=== PATIENT | male | born 1955 | race Hispanic/Latino ===

== ENCOUNTER 2021-11-01 10:47 | Emergency (ER) | payer OTHER ==
--- OUTSIDE RECORDS SUMMARY | 2021-11-01 10:51 | XMS REPORT | Continuity of Care Document ---
:1955 Author Organization [facility] t Address [address] [place] [address] Care Team Providers Name Role Phone Sharpless Primary Care Physician Nora Santillan Attending Clinician Unavailable ROSE YUSUF Attending Clinician Unavailable LYNNETTE GOINS Attending Clinician Unavailable JASON TORRES Attending Clinician Unavailable MD JASON TORRES Attending Clinician Unavailable Danelle Di Bakari Attending Clinician Unavailable RONEY FRANKLIN Attending Clinician Unavailable HEIDY POLANCO Attending Clinician Unavailable JASON TORRES Admitting Clinician Unavailable MD JASON TORRES Admitting Clinician Unavailable Danelle Di V Admitting Clinician Unavailable RONEY FRANKLIN Admitting Clinician Unavailable HEIDY POLANCO Admitting Clinician Unavailable ROSE YUSUF Admitting Clinician Unavailable Payers Payer Name Policy Type Policy Number Effective Date Expiration Date S ource Problems Condition Condition Condition Status Onset Resolution Last Treating Co mments Source Name Details Category Date Date Treatment Clinician Date Sepsis Sepsis Disease Active [facility] 11[facility]: [facility]osp[facility] 00 l Leukocytos Leukocytos Disease Active M ethodi is is 11-29 00:00: [facility]ospita 00 l Abnormal Abnormal Disease Active [facility] Allergies, Adverse Reactions, Alerts Allergy Allergy Status Severity Reaction(s) Onset Inactive Treating Comm ents Source Name Type Date Date Clinician No Known DA Active U [facility] 8-25 Clear s 00:00: Antonio 00 [facility] No Known DA Active U [facility] Allergie 8-25 Clear s 00:00: Antonio 00 [facility] No Known DA Active U 2009-03 [facility] Intolera 0-03 Clear nces 00:00: Antonio [facility] No Known DA Active U 2009-03 [facility] Intolera 0-03 Clear nces 00:00: [place] [facility] Social History Social Habit Start Date Stop Date Quantity Comments Source History of Current smoker [facility] Hospital History [facility] Drinks History [facility] Alcohol intake 2020-09-24 2020-09-24 Current [facility] 00:00:00 00:00:00 non-drinker of Hospital alcohol (finding) Tobacco use and 2019-12-01 2019-12-01 Smokeless tobacco [facility] exposure 00:00:00 00:00:00 non-user Hospital History SDAL 2019-12-01 2019-12-01 1 [facility] Alcohol Frequency 00:00:00 00:00:00 [facility] Tobacco Comment 2019-12-01 2019-12-01 quit 20 years ago [facility] 00:[facility]00 Hospital Sex Assigned At [birth year] [facility] 00:00:00 00:[facility]:00 Hospital Smoking Status Start Date Stop Date Source Ex-smoker 2019-12-01 00:00:00 2019-12-01 [facility] Medications Ordered Filled Start Stop Current Ordering Indication Dosage Frequency Signature Comments Components Source Medication Medication Date Date Medication? Clinician (SIG) Name Name jas Yes 250mg QD Take 1 Met hodi n 7-[address] (Zithromax 00:00: (250 mg Hosp vania Z-Pedrito) 250 00 total) by l MG tablet mouth daily. Take 2 tablets the first day, then 1 tablet daily for 4 days. cyclobenzap 2020-0 Yes 10mg Q24H Take 10 mg Methodi rine 9-[address] (FLEXERIL) 12:25: daily as Hos geraldine 10 mg 22 needed for l tablet muscle spasms. atorvastati 2019-0 Yes 10mg QD Take 10 mg Methodi n (LIPITOR) 9-[address] 10 mg 12:25: nightly. Hospita tablet 22 l metoprolol 2019-0 Yes 25mg QD Take 25 mg M ethodi succinate 9-[address] XL 12:25: nightly. Hospita (TOPROL-XL) 22 l 25 mg 24 hr tablet metFORMIN 0 Yes 1000mg Q.5D Take 1,000 Methodi (GLUCOPHAGE 7-[address] ) 500 mg 00:00: mouth 2 Hospit a tablet 00 (two) l times a day with meals. ibuprofen Yes 800mg QD Take [address] (ADVIL,MOTR 5-11 [facility] [place]) 200 MG 17:53: mouth Medica l tablet 48 every Center morning. ibuprofen 2017- Yes 400mg QD Take [address] (ADVIL,MOTR 5-11 [facility] [place]) 200 MG 17:53: mouth Medica l tablet 48 nightly. Center chlorthalid 20170 Yes 25mg QD Take [address] one 5-11 by mouth [facility] (HYGROTON) 17:53: daily. Medic al 25 MG 48 Center tablet valsartan Yes 320mg QD Take [address] (DIOVAN) 5-11 mg by [facility] 320 MG 17:53: mouth Medical tablet 48 daily. Center metFORMIN 2017- Yes 500mg QD Take [address] (GLUCOPHAGE 5-11 mg by [facility] ) 500 MG 17:53: mouth Medical tablet 48 nightly. [place] POTASSIUM 2017-0 Yes 595mg QD Take [address] ORAL 5-11 mg by [facility] 17:53: mouth Medical 48 daily. Center Procedures This patient has no known procedures. Plan of Care Planned Activity Planned Date Details Comments Source Future Scheduled 2021-11-01 HEPATITIS B VACCINES [facility] Test 04:03:51 (1 of 3 - 3-dose series) [code = HEPATITIS B VACCINES (1 of 3 - 3-dose series)] Future Scheduled 2021-11-01 COVID-19 VACCINE (#1) [facility] Test 04:03:51 [code = COVID-19 VACCINE (#1)] Future Scheduled 2021-11-01 Hepatitis C screening [facility] Test 04:03:51 (procedure) [code = 900558905] Future Scheduled 2021-11-[address] [facility] Test 04:03:51 [code = COLONOSCOPY SCREENING] Future Scheduled 2021-11-01 SHINGLES VACCINES (1 Met [facility] Test 04:03:51 of 2) [code = SHINGLES VACCINES (1 of 2)] Future Scheduled 2021-11-01 65+ PNEUMOCOCCAL Methodi [facility] Test 04:03:51 VACCINE (1 - PCV) [code = 65+ PNEUMOCOCCAL VACCINE (1 - PCV)] Future Scheduled 2021-11-01 INFLUENZA VACCINE Method [facility] Test 04:03:51 [code = INFLUENZA VACCINE] Encounters Start End Encounter Admission Attending Care Care Encounter Source Date/Time Date/Time Type Type Clinicians Facility Department ID 2019-10-30 Inpatient Santillan, [facility] OUTD [id number] [facility] 07:30:00 Nora [id number] [facility] 2019-10-28 Inpatient Santillan, [facility] OUTD [id number] [facility] 09:30:00 Nora [id number] [facility] 2020-09-24 2020-09-24 Emergency PARAMJIT, [facility] [id number] [place] 00:00:00 00:00:00 ROSE 343 Method i 2019-12-10 2019-12-10 Outpatient [facility] [id number] [place] 00:00:00 00:00:00 LYNNETTE 013 Method i 2019-12-10 2019-12-10 Outpatient [facility] [id number] [place] 00:00:00 00:00:00 665 Method i 2019-12-10 2019-12-10 Outpatient [facility] [id number] [place] 00:00:00 00:00:00 748 Method i 2019-11-30 2019-12-03 Inpatient MAIKOL, [facility] [id number] [place] 00:00:00 00:00:00 JASON [address] 2019-11-20 2019-11-20 Outpatient Cristine Hanson [facility] RADI [id number] [facility] 11:59:00 11:59:00 [id number] [facility] 2019-10-29 2019-10-29 Outpatient NETTA Vu [id number] [facility] 05:26:00 05:26:00 Nora [id number] [facility] 2015-06-22 2015-06-22 Emergency SHERRI, [facility] [id number] 54 [place] 00:00:00 00:00:00 HEIDY [address] 2015-06-09 2015-06-09 Emergency PARAMJIT [facility] [id number] [place] 00:00:00 00:00:00 ROSE Macias Method i st Results Test Description Test Time Test Comments Results Result Comments Source SARS-CoV-2 (COVID-19) RNA [Presence] in Respiratory sp ecimen by 2019-12-01 03:09:55 [place] with probe detection Test Item Value Reference Range Interpretation Comme nts SARS-CoV-2 (COVID-19) RNA [Presence] in Respiratory Not detected No t-Detected specimen by MILTON with probe detection (test code = 11658-5) - XR L-SPINE 2/3 [id number] 14:23:00 FAX: Cristine Hart MD [phone] [place]: St: REG Name: MILADIS PITTS [facility] : 1955 Age/S: 64/M [address] [place] [address] Unit #: [id number] Loc: [place] [address] Phys: Cristine Mcclendon MD Acct: [id number] Date: Status: REG CLI PHONE #: [phone] Exam Date: 11/20/2019 1234 FAX #: [phone] Reason: M54.5, LOW BACK PAIN. EXAMS: CPT CODE: [id number] XR L-SPINE 2/3 VIEWS [id number] Patient Name: MILADIS PITTS : 1955; Age: 64 years y/o Male MR: [id number] Study: - XR L-SPINE 2/3 VIEWS 11/20/2019 12:09 PM Ordering Physician: Debra Mcclendon MD Clinical Indication: ; M54.5, LOW BACK PAIN. Comparison:None FINDINGS: Moderate lumbar spondylosis and mild to moderatefacet joint arthrosis . Contiguous ant erior osteophytes are seen from the T12-L4 vertebral bodies.Interspinous space narrowing throughout the lumbar spine. Right total hip arthroplasty, partially imaged. No acute fracture, dislocation, or suspicious focal osseous lesion. The paraspinal soft tissue thickness is normal. IMPRESSION: Moderate lumbar spondylosis and facet arthrosis as above discussed. SL: [id number] at 7335 Reported and signed by: Nils Mosqueda M.D. CC: Cristine Cano MD Technologist: RT Lina(R), RTT Trnscrd Date/Time/By: 11/20/2019 (0112) : By: [email or web address] Orig Print D/T: S: 11/20/2019 (5797) PAGE 1 Signed ReportNovel Coronavirus 2019 Inhouse 2019-10-29 01:53:00 Test Item Value Reference Range Interpretation Comments Novel Coronavirus 2019 Inhouse (test Negative Negative code = COVNONPUI) BASIC METABOLIC [id number] 11:07:00 Test Item Value Reference Range Interpretation Comments SODIUM (test code = NA) 136 mEq/L 134-147 N POTASSIUM (test code = 3.3 mEq/L 3.4-5.0 L K) CHLORIDE (test code = 102 mEq/L 100-108 N CL) CARBON DIOXIDE (test 31 mEq/L 21-33 N code = CO2) ANION GAP (test code = 6 0-20 N GAP) GLUCOSE (test code = 156 mg/dL 70-110 H GLU) BLOOD UREA NITROGEN 20 mg/dL 7-18 H (test code = BUN) GLOMERULAR FILTRATION 60.6 80-90 L Units of measure = RATE (test code = GFR) ml/mi n/1.73 m2 CREATININE (test code = 1.2 mg/dL 0.6-1.3 N CREAT) CALCIUM (test code = 9.5 mg/dL 8.0-10.5 N CA) PROTHROMBIN [id number] 10:49:00 Test Item Value Reference Range Interpretation Comments PROTHROMBIN TIME 11.0 SECONDS 9.3-12.9 N PATIENT (test code = PTP) INTERNATIONAL NORMAL 1.0 0.8-1.2 N TARGET INR BY RATIO (test code = INDICATIO N Indication INR) INR1. Prophylax is of venous thrombos is 2.0 - 3.0 (orthoped ic surgery), Proph ylaxis of venous throm bosis (other than hig h-risk surgery), Treat ment of Deep Vein Thrombosis/Pulm onary Embolism, Preve ntion of systemic emb olism - Tissue heart va lves, Acute Myocardia l Infarction (to prevent systemic emboli sm), Valvular heart disease, Atrial Fibrillation, Bileaflet mecha nical valve in aortic position.2. Mec hanical prosthetic valv es (high risk), 2. 5 - 3.5 Presence of Lup us Anticoagulant o r Antiphospholipi d Antibodies, Pre vention of systemic emb olism - Acute Myocardia l Infarction (to prevent recurrent infar ct). CBC W/AUTO [id number] 10:43:00 Test Item Value Reference Range Interpretation Comments WHITE BLOOD CELL (test code = 7.31 x10 3/uL 4.5-11.0 N WBC) RED BLOOD CELL (test code = 4.07 x10 6/uL 4.00-5.60 N RBC) HEMOGLOBIN (test code = HGB) 12.3 g/dL 12.5-16.9 L HEMATOCRIT (test code = HCT) 37.4 % 37.5-50.7 L MEAN CELL VOLUME (test code = 91.9 fL 81.0-99.0 N MCV) MEAN CELL HGB (test code = MCH) 30.2 pg 27.0-33.0 N MEAN CELL HGB CONCETRATION 32.9 g/dL 33.0-37.0 L (test code = MCHC) RED CELL DISTRIBUTION WIDTH CV 12.6 % 11.5-14.5 N (test code = RDW) RED CELL DISTRIBUTION WIDTH SD 42.2 fL 37.0-54.0 N (test code = RDW-SD) PLATELET COUNT (test code = 325 x10 3/uL 150-400 N PLT) MEAN PLATELET VOLUME (test code 9.6 fL 7.0-9.0 H = MPV) NEUTROPHIL % (test code = NT%) 55.0 % 56.0-77.0 L IMMATURE GRANULOCYTE % (test 0.4 % 0.0-2.0 N code = IG%) LYMPHOCYTE % (test code = LY%) 30.6 % 14.0-32.0 N MONOCYTE % (test code = MO%) 6.3 % 4.8-9.0 N EOSINOPHIL % (test code = EO%) 7.0 % 0.3-3.7 H BASOPHIL % (test code = BA%) 0.7 % 0.0-2.0 N NUCLEATED RBC % (test code = 0.0 % 0-0 N NRBC%) NEUTROPHIL # (test code = NT#) 4.02 x10 3/uL 2.0-7.6 N IMMATURE GRANULOCYTE # (test 0.03 x10 3/uL 0.00-0.03 N code = IG#) LYMPHOCYTE # (test code = LY#) 2.24 x10 3/uL 1.0-3.8 N MONOCYTE # (test code = MO#) 0.46 x10 3/uL 0.1-0.8 N EOSINOPHIL # (test code = EO#) 0.51 x10 3/uL 0.0-0.2 H BASOPHIL # (test code = BA#) 0.05 x10 3/uL 0.0-0.2 N NUCLEATED RBC # (test code = 0.00 x10 3/uL 0.0-0.1 N NRBC#) MANUAL DIFF REQUIRED (test code NO = MDIFF) - XR CHEST 2 [id number] 10:37:00 FAX: Cristine Hart MD [phone] [place]: St: PRE FAX: Nora Krishnan MD [phone] Name: MILADIS PITTS JR [facility] : 1955 Age/S: 64/M [address] [place] [address] Blvd Unit #: [id number] Loc: [place], [id number] Phys: Nora Santillan MD Acct: [id number] Dis Date: Status: PRE SDC PHONE #: [phone] Exam Date: 10/28/2019 1033 FAX #: [phone] Reason: LT HEART CATH EXAMS: CPT CODE: [id number] XR CHEST 2 V 72975 Study: - XR CHEST 2 V 10/28/2019 10:02 AM Patient Name: MILADIS PITTS JR MR: [id number] : 1955; Age: 64 years y/o Male Ordering Physician: Nora Santillan MD Clinical Indication: LT HEART CATH Comparison: None FINDINGS LUNGS: The lungs are clear of consolidation, pleural effusion, and pneumothorax. HEART AND MEDIASTINUM: Normal size heart. LINES: None. OSSEOUS STRUCTURES: Mild to moderate spinal degenerative change without acute fracture, dislocation, or suspicious focal osseous lesion. OTHER: None. IMPRESSION: No acute abnormality as above discussed. SL: [id number] Elect ronically Signed by Alberto Mosqueda on 10/28/2019 at 1037 Reported and signed by: Nils Mosqueda M.D. CC: Arnav CORDERO; Nora Santillan MD Technologist: Aisha Zee, RT(R) Trnscrd Date/Time/By:10/28/2019 (1037) : By: [email or web address] Orig Print D/T: S: 10/28/2019 (1043) PAGE 1 Signed ReportPOCT-GLUCOSE METER 2016-07-13 11:05:00 Test Item Value Reference Range Interpretation Comments POC-GLUCOSE METER 137 mg/dL 70-110 H TESTED AT [facility] 55 ([facility]) (test code = OSIEL JAUREGUI IM 9001) [address]
[2021-11-01 11:26] LABS: Absolute Lymphocytes (CBC) 1.8 K/uL (0.7-4.9); Hematocrit 39.2 % (39.6-49.0); MPV 7.5 fL (7.6-11.3); RBC Red Blood Cell Count 4.56 M/uL (4.33-5.43)
[2021-11-01 11:44] LABS: Albumin 3.4 g/dL (3.4-5.0); Bilirubin Direct 0.1 mg/dL (0-0.2); Bilirubin Total 0.5 mg/dL (0.2-1.0); Magnesium 2.1 mg/dL (1.8-2.4); Potassium 3.8 mmol/L (3.5-5.1); Protein, Total 7.1 g/dL (6.4-8.2)
[2021-11-01 12:21] LABS: Urine Blood Negative (Negative); Urine Glucose 3+ (Negative); Urine Protein Negative (Negative); Urine pH 5.5 (5.0-7.0)
--- NOTE | 2021-11-01 13:00 | EDPHYS ---
Physician Documentation [facility] Name: Jerod Pitts Jr Age: 66 yrs Sex: Male : 1955 Arrival Date: 11/01/2021 Time: 10:50 Bed 3 Private MD: ED Physician Dennis Lowry HPI: 11/01 10:52 This 66 yrs old Male presents to ER via Unassigned with complaints of Blood ms3 Pressure Problem. 10:52 66-year-old male with past medical history of hypertension and bradycardia presents ms3 from the [place] [facility] for hypotension. Patient's was being seen in the [place] [facility] for routine visit when he stood up and began to feel dizzy. Office staff obtained a blood pressure in the 80s. EMS states sitting patient's blood pressure was 82 systolic. Patient denies chest pain, shortness of breath. EMS administered 200 mL of normal saline in route. Patient denies pain. Patient denies alleviating or inciting factors.. Historical: - Allergies: 10:54 No Known Allergies; jg9 - Home Meds: 11:42 alogliptin 25 mg oral tab 1 tab once daily for type 2 diabetes mellitus [Active]; jg9 atorvastatin 80 mg oral tab 1 tab once daily for hypercholesterolemia [Active]; chlorthalidone 25 mg Oral tab 1 tab once daily for peripheral edema due to chronic heart failure [Active]; cyclobenzaprine 10 mg Oral tab 1 tab prn for muscle spasm [Active]; empagliflozin 25 mg oral tab 1 tab once daily for blood sugar, heart, or kidneys [Active]; ezetimibe 10 mg oral tab 1 tab once daily for hypercholesterolemia [Active]; finasteride 5 mg oral tab 1 tab once daily for benign prostatic hyperplasia with lower urinary tract symptom [Active]; losartan 100 mg oral tab 1 tab once daily for hypertension [Active]; melatonin 3 mg Oral cap 3 mg nightly for Sleep Disorder [Active]; metformin 500 mg Oral tab 2 tabs 2 times per day for type 2 diabetes mellitus [Active]; metoprolol tartrate 50 mg Oral tab 1 tab once daily for acute coronary syndrome, hypertension [Active]; omeprazole 20 mg Oral TbEC 20 mg daily for gastroesophageal reflux disease [Active]; tamsulosin 0.4 mg oral cap 2 caps nightly for benign prostatic hyperplasia with lower urinary tract symptom [Active]; - PMHx: 11:49 Obesity; jg9 11:50 coronary arteriosclerosis; Sleep apnea; benign prostatic hyperplasia; Depressive jg9 disorder; Anxiety; Type 2 diabetes mellitus; - PSHx: 11:50 total left knee replacement; jg9 - Immunization history:: Client reports receiving the 2nd dose of the Covid vaccine, Pneumococcal vaccine is not up to date, Flu vaccine is not up to date. - Social history:: Smoking status: Patient/guardian denies using tobacco, the patient reports quitting approximately 20 years ago. ROS: 10:52 Constitutional: Negative for fever, and chills. Neck: Negative for injury, pain, and ms3 swelling, Cardiovascular: Negative for chest pain, and palpitations. Respiratory: Negative for shortness of breath, cough, wheezing, and pleuritic chest pain, Abdomen/GI: Negative for abdominal pain, nausea, vomiting, diarrhea, and constipation, MS/Extremity: Negative for injury and deformity, Skin: Negative for injury, rash, and discoloration. 10:52 Neuro: Positive for near syncope. 10:52 All other systems are negative. Exam: 10:52 Constitutional: This is a well developed, well nourished patient who is awake, alert, ms3 and in no acute distress. Head/Face: Normocephalic, atraumatic. Neck: Trachea midline, no cervical lymphadenopathy. Supple, full range of motion without nuchal rigidity, or vertebral point tenderness. No Meningismus. Chest/axilla: Normal chest wall appearance and motion. Nontender with no deformity. Cardiovascular: Regular rate and rhythm with a normal S1 and S2. No gallops, murmurs, or rubs. Normal PMI, no JVD. No pulse deficits. Respiratory: Lungs have equal breath sounds bilaterally, clear to auscultation and percussion. No rales, rhonchi or wheezes noted. No increased work of breathing, no retractions or nasal flaring. Abdomen/GI: Soft, non-tender, with normal bowel sounds. No distension or tympany. No guarding or rebound. No evidence of tenderness throughout. Skin: Warm, dry with normal turgor. Normal color with no rashes, no lesions, and no evidence of cellulitis. MS/ Extremity: Pulses equal, no cyanosis. Neurovascular intact. Full, normal range of motion. Neuro: Awake and alert, GCS 15, oriented to person, place, time, and situation. Cranial nerves II-XII grossly intact. Motor strength 5/5 in all extremities. Sensory grossly intact. Cerebellar exam normal. Normal gait. Psych: Awake, alert, with orientation to person, place and time. Behavior, mood, and affect are within normal limits. 12:16 ECG was reviewed by the Attending Physician. ms3 Vital Signs: 10:45 BP 107 / 63; Pulse 54; Resp 15 S; Pulse Ox 100% on R/A; jg9 10:51 BP 107 / 63; Pulse 59; Resp 21 S; Temp 97.8(O); Pulse Ox 100% on R/A; Weight 110.22 kg; jg9 Height 5 ft. 9 in. (175.26 cm) (R); Pain 0/10; 11:15 BP 112 / 55; Pulse 51; Resp 10 S; Pulse Ox 100% on R/A; jg9 11:45 BP 111 / 65; Pulse 52; Resp 16 S; Pulse Ox 100% on R/A; jg9 12:00 BP 109 / 49; Pulse 48; Resp 10 S; Pulse Ox 100% on R/A; jg9 12:45 BP 121 / 67; Pulse 45; Resp 15 S; Pulse Ox 100% on R/A; jg9 10:51 Body Mass Index 35.88 (110.22 kg, 175.26 cm) j9 MDM: 10:50 Patient medically screened. ms3 10:52 Differential Diagnosis: cardiac arrhythmia, vasovagal episode, orthostatic hypotension. ms3 12:54 Data reviewed: vital signs, nurses notes, lab test result(s), EKG, and as a result, I ms3 will discharge patient. Counseling: I had a detailed discussion with the patient and/or guardian regarding: the historical points, exam findings, and any diagnostic results supporting the discharge/admit diagnosis, lab results, the need for further work-up and treatment in the hospital. Refusal of service: The patient/guardian displays adequate decision making capability and despite a detailed discussion of alternatives, benefits, risks, and consequences refuses: Admission to the hospital for further work-up and treatment. ED course: Discussed observation with patient and his family as patient's blood pressure was in the 80s on EMS arrival. Patient declines observation stating his insurance is out of network and he would like to go elsewhere. Patient's labs and EKG were printed out and given to patient. Reiterated recommendations for observation and [facility] and patient declines. Patient understands he could have an arrhythmia, passout, become disabled, or without observation. Patient's blood pressure normotensive while in the emergency department. Patient currently sitting up in chair in ED room with blood pressure of 120/57, heart rate of 52.. 11/01 10:51 Order name: Basic Metabolic Panel; Complete Time: 11:45 ms3 11/01 10:51 Order name: CBC with Diff; Complete Time: 11:45 ms3 11/01 10:51 Order name: Hepatic Function; Complete Time: 11:45 ms3 11/01 10:51 Order name: Magnesium; Complete Time: 11:45 ms3 11/01 11:55 Order name: Troponin HS; Complete Time: 12:50 ms3 11/01 12:21 Order name: Urine Dipstick-Ancillary; Complete Time: 12:50 EDMS 11/01 10:51 Order name: EKG; Complete Time: 10:51 ms3 11/01 10:51 Order name: Cardiac monitoring; Complete Time: 11:53 ms3 11/01 10:51 Order name: EKG - Nurse/Tech; Complete Time: 12:16 ms3 11/01 10:51 Order name: IV Saline Lock; Complete Time: 11:53 ms3 11/01 10:51 Order name: Labs collected and sent; Complete Time: 11:53 ms3 11/01 10:51 Order name: NPO; Complete Time: 12:56 ms3 11/01 10:51 Order name: O2 Sat Monitoring; Complete Time: 11:53 ms3 11/01 10:51 Order name: Urine Dipstick-Ancillary (obtain specimen); Complete Time: 12:56 ms3 EC:16 Rate is 47 beats/min. Rhythm is regular. QRS [place] is Normal. ND interval is normal. QRS ms3 interval is normal. Clinical impression: Sinus bradycardia. Interpreted by me. Reviewed by me. Administered Medications: No medications were administered Disposition Summary: 11/01/21 12:59 Discharge Ordered Location: Home ms3 Condition: Stable ms3 Diagnosis - Hypotension, unspecified ms3 - Syncope Near ms3 Followup: ms3 - With: Private Physician - When: Today - Reason: Recheck today's complaints, Re-evaluation by your physician Discharge Instructions: - Discharge Summary Sheet ms3 - Near-Syncope ms3 Forms: - Medication Reconciliation Form ms3 - Thank You Letter ms3 - Antibiotic Education ms3 - Prescription Opioid Use ms3 Signatures: Dispatcher [employer] EDDennis Kahn DO DO ms3 Yuli Dvaid RN RN jg9 Corrections: (The following items were deleted from the chart) 10:55 10:54 Allergies: No Known Allergies; jg9 jg9 10:55 10:54 Allergies: PENICILLINS; jg9 jg9 11:53 10:51 Oxygen Per Protocol ordered. ms3 jg9
--- NOTE | 2021-11-01 13:00 | ER ---
Nurse's Notes [facility] Name: Jerod Pitts Jr Age: 66 yrs Sex: Male : 1955 Arrival Date: 11/01/2021 Time: 10:50 Bed 3 Private MD: Diagnosis: Hypotension, unspecified;Syncope Near Presentation: 11/01 10:51 Chief complaint: EMS states: [place] today [place] routine check up when he jg9 was called back into the exam room he reported some dizziness with standing today as well as for the past couple weeks on and off, once in the exam room vs assessed per EMS revealed the patient was hypotensive and bradycardic. Patient voices no complaints at this time. EMS reports BP in 80's when they arrived, given a 500 mL bolus during transport. Coronavirus screen: Vaccine status: Patient reports receiving the 2nd dose of the covid vaccine. Ebola Screen: Patient negative for fever greater than or equal to 101.5 degrees Fahrenheit, and additional compatible Ebola Virus Disease symptoms Patient denies exposure to infectious person. Patient denies travel to an Ebola-affected area in the 21 days before illness onset. Initial Sepsis Screen: Does the patient meet any 2 criteria? No. Patient's initial sepsis screen is negative. Does the patient have a suspected source of infection? No. Patient's initial sepsis screen is negative. Risk Assessment: Do you want to hurt yourself or someone else? Patient reports no desire to harm self or others. Onset of symptoms is unknown. 10:51 Method Of Arrival: EMS: [facility] jg9 10:51 Acuity: PADMINI 3 jg9 Triage Assessment: 10:50 General: Appears in no apparent distress. Behavior is calm, cooperative. Pain: Denies jg9 pain. EENT: No deficits noted. Neuro: No deficits noted. Cardiovascular: Rhythm is sinus bradycardia. Cardiovascular: Parent/caregiver reports patient has had intermittent dizziness and hypotension. Cardiovascular: Parent/caregiver reports patient has had. Respiratory: No deficits noted. GI: No deficits noted. : No deficits noted. Derm: No deficits noted. Musculoskeletal: No deficits noted. Historical: - Allergies: 10:54 No Known Allergies; jg9 - Home Meds: 11:42 alogliptin 25 mg oral tab 1 tab once daily for type 2 diabetes mellitus [Active]; jg9 atorvastatin 80 mg oral tab 1 tab once daily for hypercholesterolemia [Active]; chlorthalidone 25 mg Oral tab 1 tab once daily for peripheral edema due to chronic heart failure [Active]; cyclobenzaprine 10 mg Oral tab 1 tab prn for muscle spasm [Active]; empagliflozin 25 mg oral tab 1 tab once daily for blood sugar, heart, or kidneys [Active]; ezetimibe 10 mg oral tab 1 tab once daily for hypercholesterolemia [Active]; finasteride 5 mg oral tab 1 tab once daily for benign prostatic hyperplasia with lower urinary tract symptom [Active]; losartan 100 mg oral tab 1 tab once daily for hypertension [Active]; melatonin 3 mg Oral cap 3 mg nightly for Sleep Disorder [Active]; metformin 500 mg Oral tab 2 tabs 2 times per day for type 2 diabetes mellitus [Active]; metoprolol tartrate 50 mg Oral tab 1 tab once daily for acute coronary syndrome, hypertension [Active]; omeprazole 20 mg Oral TbEC 20 mg daily for gastroesophageal reflux disease [Active]; tamsulosin 0.4 mg oral cap 2 caps nightly for benign prostatic hyperplasia with lower urinary tract symptom [Active]; - PMHx: 11:49 Obesity; jg9 11:50 coronary arteriosclerosis; Sleep apnea; benign prostatic hyperplasia; Depressive jg9 disorder; Anxiety; Type 2 diabetes mellitus; - PSHx: 11:50 total left knee replacement; jg9 - Immunization history:: Client reports receiving the 2nd dose of the Covid vaccine, Pneumococcal vaccine is not up to date, Flu vaccine is not up to date. - Social history:: Smoking status: Patient/guardian denies using tobacco, the patient reports quitting approximately 20 years ago. Screenin:55 Abuse screen: Denies threats or abuse. Denies injuries from another. Nutritional jg9 screening: No deficits noted. Tuberculosis screening: No symptoms or risk factors identified. Fall Risk None identified. Assessment: 11:00 Reassessment: Patient and/or family updated on plan of care and expected duration. Pain jg9 level reassessed. Patient is alert, oriented x 3, equal unlabored respirations, skin warm/dry/pink. 12:00 Reassessment: No changes from previously documented assessment. Patient and/or family jg9 updated on plan of care and expected duration. Pain level reassessed. Patient is alert, oriented x 3, equal unlabored respirations, skin warm/dry/pink. Vital Signs: 10:45 BP 107 / 63; Pulse 54; Resp 15 S; Pulse Ox 100% on R/A; jg9 10:51 BP 107 / 63; Pulse 59; Resp 21 S; Temp 97.8(O); Pulse Ox 100% on R/A; Weight 110.22 kg; jg9 Height 5 ft. 9 in. (175.26 cm) (R); Pain 0/10; 11:15 BP 112 / 55; Pulse 51; Resp 10 S; Pulse Ox 100% on R/A; jg9 11:45 BP 111 / 65; Pulse 52; Resp 16 S; Pulse Ox 100% on R/A; jg9 12:00 BP 109 / 49; Pulse 48; Resp 10 S; Pulse Ox 100% on R/A; jg9 12:45 BP 121 / 67; Pulse 45; Resp 15 S; Pulse Ox 100% on R/A; jg9 10:51 Body Mass Index 35.88 (110.22 kg, 175.26 cm) jg9 ED Course: 10:50 Patient arrived in ED. jg9 10:50 Dennis Lowry DO is Attending Physician. ms3 10:51 Yuli David, RN is Primary Nurse. jg9 10:53 Triage completed. jg9 10:55 Patient has correct armband on for positive identification. Bed in low position. Call jg9 light in reach. Side rails up X 1. 10:55 Maintain EMS IV. Dressing intact. Good blood return noted. Site clean \T\ dry. Gauge \T\ jg 9 site: 20 left wrist. 10:56 Arm band placed on right wrist. jg9 12:18 No apparent distress. Resting quietly. Pt visited by brother, . jg9 13:13 No provider procedures requiring assistance completed. jg9 13:14 IV discontinued. jg9 Administered Medications: No medications were administered Outcome: 12:59 Discharge ordered by . ms3 13:14 Discharged to home ambulatory. jg9 13:14 Condition: improved 13:14 Discharge instructions given to patient, Instructed on discharge instructions, follow up and referral plans. Demonstrated understanding of instructions, follow-up care. 13:14 Patient left the ED. jg9 Signatures: Dennis Lowry DO DO ms3 Yuli David, RN RN jg9 Corrections: (The following items were deleted from the chart) 10:55 10:54 Allergies: No Known Allergies; jg9 jg9 10:55 10:54 Allergies: PENICILLINS; jg9 jg9 10:56 10:55 Arm band placed on jg9 jg9
[2021-11-01 13:54] VITALS: TEMP 97.8; O2SAT 100
[2021-11-01 14:05] VITALS: BP 121/67
== END 2021-11-01 13:14 | disposition home or self-care (01) ==
LOC: ER 10:47
DX: I95.9 Hypotension, unspecified (principal); E11.9 Type 2 diabetes mellitus without complications; F32.A Depression, unspecified; Z96.652 Presence of left artificial knee joint
CPT/HCPCS: 36415; 80048; 80076; 81003; 83735; 84484; 85025